=== PATIENT | female | born 1985 | race Caucasian/White ===

== ENCOUNTER → 2021-07-12 00:01 | Outpatient (BNVA) | payer BC, SELFPAY | PROVIDERS: Family Provider Family Medicine; PCP Registered Nurse; Visit Provider Registered Nurse | DX: E03.9 Hypothyroidism, unspecified (principal); K21.9 Gastro-esophageal reflux disease without esophagitis | CPT/HCPCS: 80053; 84443; 88305 ==

== ENCOUNTER → 2022-12-06 08:47 | Outpatient (BNVA) | payer BC, SELFPAY | PROVIDERS: Family Provider Family Medicine; PCP Registered Nurse; Visit Provider Registered Nurse | DX: E66.9 Obesity, unspecified (principal); R68.89 Other general symptoms and signs | CPT/HCPCS: 80053; 83036; 85025 ==

== ENCOUNTER → 2023-03-06 11:46 | Outpatient (BNVA) | payer MEDICAID, SELFPAY | PROVIDERS: Family Provider Family Medicine; PCP Registered Nurse; Visit Provider Emergency Medicine | DX: S82.64XA Nondisplaced fracture of lateral malleolus of right fibula, initial encounter for closed fracture (principal); X58.XXXA Exposure to other specified factors, initial encounter | CPT/HCPCS: 73610 ==

== ENCOUNTER 2023-03-09 23:36 | Outpatient (CLI) | payer MEDICAID, SELFPAY | END 2023-03-09 23:37 | disposition home or self-care (01) | LOC: SPT 04-12 23:37 | PROVIDERS: Family Provider Family Medicine; PCP Registered Nurse; Visit Provider Podiatrist Foot & Ankle Surgery | DX: Z46.89 Encounter for fitting and adjustment of other specified devices (principal); M25.571 Pain in right ankle and joints of right foot | CPT/HCPCS: L4361 ==

== ENCOUNTER → 2023-03-23 09:02 | Outpatient (BNVA) | payer MEDICAID, SELFPAY | PROVIDERS: Family Provider Family Medicine; PCP Registered Nurse; Visit Provider Podiatrist Foot & Ankle Surgery | DX: S82.831D Other fracture of upper and lower end of right fibula, subsequent encounter for closed fracture with routine healing (principal); S82.401D Unspecified fracture of shaft of right fibula, subsequent encounter for closed fracture with routine healing; W10.9XXD Fall (on) (from) unspecified stairs and steps, subsequent encounter | CPT/HCPCS: 73630 ==

== ENCOUNTER → 2023-04-03 13:25 | Outpatient (BNVA) | payer MEDICAID, SELFPAY | PROVIDERS: Family Provider Family Medicine; PCP Registered Nurse; Visit Provider Podiatrist Foot & Ankle Surgery | DX: S82.831D Other fracture of upper and lower end of right fibula, subsequent encounter for closed fracture with routine healing (principal); S82.401D Unspecified fracture of shaft of right fibula, subsequent encounter for closed fracture with routine healing; W10.9XXD Fall (on) (from) unspecified stairs and steps, subsequent encounter | CPT/HCPCS: 73610 ==

== ENCOUNTER 2023-04-03 14:55 | Outpatient (CLI) | payer MEDICAID, SELFPAY | END 2023-04-03 14:56 | disposition home or self-care (01) | LOC: SPT 14:56 | PROVIDERS: Family Provider Family Medicine; PCP Registered Nurse; Visit Provider Podiatrist Foot & Ankle Surgery | DX: Z46.89 Encounter for fitting and adjustment of other specified devices (principal); S82.892D Other fracture of left lower leg, subsequent encounter for closed fracture with routine healing; X58.XXXD Exposure to other specified factors, subsequent encounter | CPT/HCPCS: 97760; L1902 ==

== ENCOUNTER 2024-07-30 07:21 | Day surgery (SDC) | payer BC, SELFPAY ==
[2024-07-30 07:38] VITALS: BP 125/83; PULSE 75; RESP 16; TEMP 36.9; O2SAT 98
[2024-07-30] MEDS: sodium chloride 0.9% 1,000 ML 30 ML IV (07:51)
--- NOTE | 2024-07-30 08:11 | ANES.PREANE2 ---
Pre-Anesthetic Assessment Height/Weight: Height 1.63 m Temp Pulse Resp BP Pulse Ox O2 Del Method 98.4 F 75 16 125/83 98 Room Air 07/30/24 07:38 07/30/24 07:38 07/30/24 07:38 07/30/24 07:38 07/30/24 07:38 07/30/24 07:38 Preop Diagnosis: screening Operation Date: 07/30/24 08:30 Proposed Procedures p Colonoscopy / 84046, G0105,K57.92(Not Applicable) - Seven Song DO Familial anesthetic complications: none Was Beta Tara taken within 24 hours: N/A Was Clonidine taken within 24 hours: N/A Last intake: Intake Last Liquid Date 07/29/24 Last Liquid Time 22:00 Last Solid Date 07/28/24 Last Solid Time 18:00 Social No alcohol and No tobacco (previous smoker) Exam alert, oriented x 3 and clear to auscultation bilaterally Airway Mallampati: Class III Dentition: full History/ROS No significant history except as noted Pulmonary None reported CV/HEM None reported None reported Hepatic None reported GI None reported Metabolic None reported Musc/skel None reported Neuropsych Anxiety and Depression Anesthetic Plan ASA status: 2 Anesthesia: MAC Risk of > 500 ml blood loss (7ml/kg in children): No Medications/Allergies Home Medications Medication Instructions Recorded Confirmed Last Taken Type CAM Boot #1 ea 03/09/23 06/16/24 Unknown Rx ASO brace #1 ea 04/03/23 06/16/24 Unknown Rx cetirizine 10 mg tablet 10 mg PO DAILY 06/16/24 07/30/24 07/28/24 History fluticasone propionate 50 1 spray intranasal DAILY 06/16/24 07/30/24 07/28/24 History mcg/actuation nasal spray,suspension (Flonase Allergy Relief) sodium chloride-aloe vera nasal 1 applic topical DAILY PRN dry 06/16/24 07/30/24 Unknown History gel ([place] Saline nasal gel) nostril/ nose bleed topiramate 100 mg tablet 100 mg PO BID 06/16/24 07/30/24 07/29/24 History urinary tract OTC 1 tab PO DAILY 06/16/24 07/30/24 07/29/24 History vaginal probiotic 1 tab PO DAILY 06/16/24 07/30/2424 History Allergies Allergy/AdvReac Type Severity Reaction Status Date / Time morphine Allergy Unknown Verified 07/28/24 11:19 Current Medications Generic Name Dose Route Start Last Admin Trade Name Dylon PRN Reason Stop Dose Admin Sodium Chloride 1,000 mls @ 30 mls/hr 07/30/24 07:30 07/30/24 07:51 Sodium Chloride 0.9% IV 07/31/24 07:29 30 mls/hr .Q24H JESSICA Administration PFSH Anesthesia Family History Grandfather Colon cancer Unknown Colon cancer Aunt on Dads side Other Cancer Social History Smoking and tobacco/nicotine status: never used tobacco/nicotine Alcohol intake: never Substance/Drug Use: never Adopted: No Caregiver/support person: No Lives independently: No Household members: spouse and children Marital status: service: No Current occupational status: employed Sexually active: Yes Do you think of yourself as: Straight/Heterosexual Current gender identity: Female Data Anesthesia Cardiac Studies: No Data to Display
--- NOTE | 2024-07-30 08:23 | PM.HP ---
Providers/Chief Complaint Primary Care Provider: Karla Arevalo Chief Complaint: K57.92 History of Present Illness Thea Ibarra is a 38 year old female Review of Systems General: Reports: 10 or more systems reviewed and unremarkable except in HPI and below Medications/Allergies Home Medications Medication Instructions Recorded Confirmed Last Taken Type CAM Boot #1 ea 03/09/23 06/16/24 Unknown Rx ASO brace #1 ea 04/03/23 06/16/24 Unknown Rx cetirizine 10 mg tablet 10 mg PO DAILY 06/16/24 07/30/24 07/28/24 History fluticasone propionate 50 1 spray intranasal DAILY 06/16/24 07/30/24 07/28/24 History mcg/actuation nasal spray,suspension (Flonase Allergy Relief) sodium chloride-aloe vera nasal 1 applic topical DAILY PRN dry 06/16/24 07/30/24 Unknown History gel ([place] Saline nasal gel) nostril/ nose bleed topiramate 100 mg tablet 100 mg PO BID 06/16/24 07/30/24 07/29/24 History urinary tract OTC 1 tab PO DAILY 06/16/24 07/30/24 07/29/24 History vaginal probiotic 1 tab PO DAILY 06/16/24 07/30/24 07/29/24 History Allergies Allergy/AdvReac Type Severity Reaction Status Date / Time morphine Allergy Unknown Verified 07/28/24 11:19 PFSH Acute PFSH: Family History Grandfather Colon cancer Unknown Colon cancer Aunt on Dads side Other Cancer Social History Smoking and tobacco/nicotine status: never used tobacco/nicotine Alcohol intake: never Substance/Drug Use: never Adopted: No Caregiver/support person: No Lives independently: No Household members: spouse and children Marital status: service: No Current occupational status: employed Sexually active: Yes Do you think of yourself as: Straight/Heterosexual Current gender identity: Female Vitals/I&O/Wt Last Vital Signs Temp 98.4 F 07/30/24 07:38 Pulse 75 07/30/24 07:38 Resp 16 07/30/24 07:38 BP 125/83 07/30/24 07:38 Pulse Ox 98 07/30/24 07:38 O2 Del Method Room Air 07/30/24 07:38 A&P Assessment and plan (1) Diverticulitis: Plan Diagnostic colonoscopy Attestations Medical Necessity Statement*: Home Coding Level of Care Code Acute Code for [facility] Fw Diagnoses Diverticulitis K57.92
[2024-07-30 08:50] VITALS: BP 115/66; PULSE 73; RESP 16; TEMP 36.3; O2SAT 98
[2024-07-30 09:00] VITALS: BP 109/74; PULSE 78; RESP 16; O2SAT 99
[2024-07-30 09:10] VITALS: BP 108/70; PULSE 72; RESP 16; O2SAT 99
--- NOTE | 2024-07-30 09:20 | ANE.PACU2 ---
Inpatient post-anesthesia follow up: Airway intact: Yes Vital signs: Temperature 97.3 F Pulse Rate 72 Respiratory Rate 16 Blood Pressure 108/70 Pulse Oximetry 99 Oxygen Delivery Me thod Room Air Oxygen Flow Rate Fraction of Inspir ed Oxygen Hydration adequate: Yes Nausea and vomiting: No Pain level: 1 Mental status: Baseline
== END 2024-07-30 09:19 | disposition home or self-care (01) ==
PROVIDERS: PCP Nurse Practitioner Family; Visit Provider Surgery
PROC: 0DJD8ZZ Inspection of Lower Intestinal Tract, Via Natural or Artificial Opening Endoscopic (ICD-10-PCS; CPT 45378; principal; 2024-07-30 08:30)
DX: K57.92 Diverticulitis of intestine, part unspecified, without perforation or abscess without bleeding (principal); K57.30 Diverticulosis of large intestine without perforation or abscess without bleeding; D12.5 Benign neoplasm of sigmoid colon; F41.9 Anxiety disorder, unspecified; F32.A Depression, unspecified
CPT/HCPCS: 45385; 88305; J2704; J7030

== ENCOUNTER 2024-09-17 11:03 | Day surgery (SDC) | payer BC, SELFPAY ==
[2024-09-17 11:26] VITALS: BMI 36.3
[2024-09-17] MEDS: sodium chloride 0.9% 1,000 ML 30 ML IV (11:30)
[2024-09-17 11:33] VITALS: BP 110/77; PULSE 75; RESP 18; TEMP 36.7; O2SAT 98
--- NOTE | 2024-09-17 12:03 | P.ANESASSM_ITS ---
Pre-Anesthetic Assessment Height/Weight: Height 1.63 m Weight 96.162 kg Temp Pulse Resp BP Pulse Ox O2 Del Method 98.1 F 75 18 110/77 98 Room Air 09/17/24 11:33 09/17/24 11:33 09/17/24 11:33 09/17/24 11:33 09/17/24 11:33 09/17/24 11:33 Operation Date: 09/17/24 12:30 Proposed Procedures p Colonoscopy 11368, G0105, D12.6, Z80.0(Not Applicable) - Seven Song DO Familial anesthetic complications: none Was Beta Tara taken within 24 hours: N/A Was Clonidine taken within 24 hours: N/A Last intake: Intake Last Liquid Date 09/16/24 Last Liquid Time 00:00 Last Solid Date 09/15/24 Last Solid Time 18:00 Exam alert, oriented x 3 and clear to auscultation bilaterally Airway Mallampati: Class III Dentition: full History/ROS No significant history except as noted Pulmonary None reported CV/HEM None reported None reported Hepatic None reported GI None reported Metabolic None reported Musc/skel None reported Neuropsych Anxiety and Depression Anesthetic Plan ASA status: 2 Anesthesia: Anesthesia Evaluation and MAC Risk of > 500 ml blood loss (7ml/kg in children): No Medications/Allergies Home Medications Medication Instructions Recorded Confirmed Last Taken Type CAM Boot #1 ea 03/09/23 09/05/24 Unknown Rx ASO brace #1 ea 04/03/23 09/05/24 Unknown Rx cetirizine 10 mg tablet 10 mg PO DAILY 06/16/24 09/15/24 09/16/24 History fluticasone propionate 50 1 spray intranasal DAILY 06/16/24 09/15/24 09/16/24 History mcg/actuation nasal spray,suspension (Flonase Allergy Relief) sodium chloride-aloe vera nasal 1 applic topical DAILY PRN dry 06/16/24 09/15/24 09/14/24 History gel ([place] Saline nasal gel) nostril/ nose bleed urinary tract OTC 1 tab PO DAILY 06/16/24 09/15/24 09/15/24 History vaginal probiotic 1 tab PO DAILY 06/16/24 09/15/24 09/15/24 History topiramate 200 mg tablet 200 mg PO BID 09/05/24 09/15/2409/16/24 History Allergies Allergy/AdvReac Type Severity Reaction Status Date / Time morphine Allergy Unknown Verified 09/15/24 12:34 Sulfa (Sulfonamide Allergy ALGY-Rash Verified 09/17/24 11:23 Antibiotics) [facility] Anesthesia Medical History (Updated 09/05/24 @ 09:25 by Seven Song DO) Diverticulitis Surgical History (Updated 09/05/24 @ 09:25 by Seven Song DO) History of tubal ligation History of hysterectomy History of D&C History of tonsillectomy Family History Grandfather Colon cancer Unknown Colon cancer Aunt on Dads side Other Cancer Social History Smoking and tobacco/nicotine status: never used tobacco/nicotine Alcohol intake: never Substance/Drug Use: never Adopted: No Caregiver/support person: No Lives independently: No Household members: spouse and children Marital status: service: No Current occupational status: employed Sexually active: Yes Do you think of yourself as: Straight/Heterosexual Current gender identity: Female Data Anesthesia Cardiac Studies: No Data to Display
--- NOTE | 2024-09-17 12:18 | W.PM.OPSUD ---
Surgery/Procedure H&P Update DATE OF PROCEDURE: September 17, 2024 DATE H&P PERFORMED: 09/05/24 H&P UPDATE INFORMATION: I have reviewed H&P completed within last 30 days, I have examined patient prior to procedure and No changes to prior documentation PLANNED PROCEDURE: Operation Date: 09/17/24 12:30 Proposed Procedures p Colonoscopy 27243, G0105, D12.6, Z80.0(Not Applicable) - Seven Song DO
[2024-09-17 12:39] VITALS: BP 113/18; PULSE 70; RESP 16; O2SAT 99
[2024-09-17 12:50] VITALS: BP 107/72; PULSE 67; RESP 16; O2SAT 98
--- NOTE | 2024-09-17 13:25 | ANE.PACU2 ---
Inpatient post-anesthesia follow up: Airway intact: Yes Vital signs: Temperature 98.1 F Pulse Rate 67 Respiratory Rate 16 Blood Pressure 107/72 Pulse Oximetry 98 Oxygen Delivery Me thod Room Air Oxygen Flow Rate Fraction of Inspir ed Oxygen Hydration adequate: Yes Nausea and vomiting: No Pain level: 1 Mental status: Baseline
== END 2024-09-17 13:25 | disposition home or self-care (01) ==
PROVIDERS: PCP Nurse Practitioner Family; Visit Provider Surgery
PROC: 0DJD8ZZ Inspection of Lower Intestinal Tract, Via Natural or Artificial Opening Endoscopic (ICD-10-PCS; CPT 45378; principal; 2024-09-17 12:30)
DX: K57.30 Diverticulosis of large intestine without perforation or abscess without bleeding (principal); D12.8 Benign neoplasm of rectum; K51.40 Inflammatory polyps of colon without complications; Z80.0 Family history of malignant neoplasm of digestive organs
CPT/HCPCS: 45385; 88305; J2704; J7030